=== PATIENT | female | born 1985 | race American Indian/Alaskan Native ===

== ENCOUNTER 2019-12-26 00:36 | Emergency (ER) | payer SELFPAY ==
[2019-12-26] MEDS ORDERED: IBUPROFEN 800 MG TAB PO ONE (02:42)
[2019-12-26] MEDS ORDERED: TETANUS,DIPH,PERTUSS(ACELL) VACCINE 0.5 ML SYRINGE IM ONE (02:42)
[2019-12-26] MEDS ORDERED: AMOXICILLIN/K CLAV 875/125MG TAB PO ONE (02:42)
--- NOTE | 2019-12-26 03:14 | Emergency Department Report ---
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 Patient states that he was delivering some packages in the neighborhood and a dog from one of the houses attacked her and ended up biting her on the thighs bilaterally. Patient states that the another dog stated the dog was fully vaccinated and is to avail documentary evidence of the vaccination in 2 days time. Patient states that she is not up-to-date with her tetanus vaccinations. Patient denies numbness and tingling or weakness of lower extremities bilaterally, dizziness, chest pain, shortness of breath, fever, chills, nausea and vomiting. MD Complaint: animal bite, animal-related injury, other (dog bite to bilateral thighs) -: Sudden, hour(s) (12) Location: other (bilateral thighs) Left: Thigh (puncture wounds from dog bites), Right: Thigh Animal: dog Animal Control Notified: Yes Description: household pet, immunizations UTD, appeared well Mechanism: bite, scratch, contact with mucous membr Pain Description: sharp, constant Severity scale (0 -10): 7 Context: provoked Associated Symptoms: none. denies: erythema, discharge from wound, bleeding, fever, chills, rash, loss of consciousness, diaphoresis, shortness of breath, other Treatments Prior to Arrival: wound dressing(s) - Related Data Patient Tetanus UTD: No (Given during this visit) Previous Rx's Medication Instructions Recorded Last Taken Type Promethazine [Phenergan] 25 mg PO Q6H PRN #14 tablet 08/07/13 Unknown Rx Cephalexin [Keflex] 500 mg PO QID #40 capsule 07/25/14 Unknown Rx Ibuprofen [Motrin] 600 mg PO Q8H PRN #50 tablet 07/25/14 Unknown Rx Cyclobenzaprine [Flexeril] 10 mg PO TID PRN #15 tablet 03/20/16 Unknown Rx Amoxicillin/Potassium Clav 1 each PO Q12H #20 tablet 12/26/19 Unknown Rx [Augmentin 875-125 Tablet] Ibuprofen [Motrin 800 MG tab] 800 mg PO Q8HR PRN #30 tablet 12/26/19 Unknown Rx Allergies Allergy/AdvReac Type Severity Reaction Status Date / Time No Known Allergies Allergy Unverified 08/07/13 13:30 ED Review of Systems ROS: Stated complaint: DOG BITE Other details as noted in HPI Constitutional: denies: chills, fever Eyes: denies: eye pain, eye discharge, vision change ENT: denies: ear pain, throat pain Respiratory: denies: cough, shortness of breath, wheezing Cardiovascular: denies: chest pain, palpitations Endocrine: no symptoms reported Gastrointestinal: denies: abdominal pain, nausea, vomiting, diarrhea Genitourinary: denies: urgency, dysuria, discharge Musculoskeletal: arthralgia (Painful bilateral thighs due to puncture wounds from dog bite). denies: back pain, joint swelling Skin: other (puncture wounds on bilateral thighs with pain). denies: rash, lesions Neurological: denies: headache, weakness, paresthesias Psychiatric: denies: anxiety, depression Hematological/Lymphatic: denies: easy bleeding, easy bruising ED Past Medical Hx - Past Medical History Previous Medical History?: Yes Hx Kidney Stones: Yes Additional medical history: fibroids/cysts - Surgical History Additional Surgical History: fibroids removed - Social History Smoking Status: Current Every Day Smoker Substance Use Type: None - Medications Home Medications: Home Medications Medication Instructions Recorded Confirmed Last Taken Type Promethazine [Phenergan] 25 mg PO Q6H PRN #14 tablet 08/07/13 Unknown Rx Cephalexin [Keflex] 500 mg PO QID #40 capsule 07/25/14 Unknown Rx Ibuprofen [Motrin] 600 mg PO Q8H PRN #50 tablet 07/25/14 Unknown Rx Cyclobenzaprine [Flexeril] 10 mg PO TID PRN #15 tablet 03/20/16 Unknown Rx Amoxicillin/Potassium Clav 1 each PO Q12H #20 tablet 12/26/19 Unknown Rx [Augmentin 875-125 Tablet] Ibuprofen [Motrin 800 MG tab] 800 mg PO Q8HR PRN #30 tablet 12/26/19 Unknown Rx ED Physical Exam - General Limitations: No Limitations General appearance: alert, in no apparent distress - Head Head exam: Present: atraumatic, normocephalic, normal inspection - Eye Eye exam: Present: normal appearance, PERRL, EOMI Pupils: Present: normal accommodation - ENT ENT exam: Present: normal exam, normal orophraynx, mucous membranes moist, TM's normal bilaterally, normal external ear exam - Neck Neck exam: Present: normal inspection, full ROM - Respiratory Respiratory exam: Present: normal lung sounds bilaterally. Absent: respiratory distress, wheezes, rales, rhonchi, chest wall tenderness, accessory muscle use, decreased breath sounds - Cardiovascular Cardiovascular Exam: Present: regular rate, normal rhythm, normal heart sounds. Absent: systolic murmur, diastolic murmur, rubs, gallop - GI/Abdominal GI/Abdominal exam: Present: soft, normal bowel sounds. Absent: tenderness, guarding, rebound, hyperactive bowel sounds, hypoactive bowel sounds, organomegaly - Extremities Exam Extremities exam: Present: normal inspection, full ROM, tenderness (Palpable bilateral thigh tenderness due to puncture wounds from dog bite), normal capillary refill - Back Exam Back exam: Present: normal inspection, full ROM. Absent: tenderness, CVA tenderness (R), muscle spasm, paraspinal tenderness - Neurological Exam Neurological exam: Present: alert, oriented X3, CN II-XII intact, normal gait, reflexes normal - Psychiatric Psychiatric exam: Present: normal affect, normal mood - Skin Skin exam: Present: warm, dry, intact, normal color, other (Severely tender puncture wounds on bilateral thighs due to dog bite wounds). Absent: rash ED Course Vital Signs 12/26/19 12/26/19 00:42 00:48 Temperature 98.6 F 98.5 F Pulse Rate 96 H 106 H Respiratory 18 20 Rate Blood Pressure 169/113 Blood Pressure 178/110 [Right] O2 Sat by Pulse 97 97 Oximetry Critical care attestation.: If time is entered above; I have spent that time in minutes in the direct care of this critically ill patient, excluding procedure time. ED Disposition Clinical Impression: Dog bite of thigh Qualifiers: Encounter type: initial encounter Laterality: unspecified laterality Qualified Code(s): S71.159A - Open bite, unspecified thigh, initial encounter; W54.0XXA - Bitten by dog, initial encounter Puncture wound of thigh Qualifiers: Encounter type: initial encounter Laterality: unspecified laterality Qualified Code(s): S71.139A - Puncture wound without foreign body, unspecified thigh, initial encounter Disposition: DC-01 TO HOME OR SELFCARE Is pt being admited?: No Does the pt Need Aspirin: No Condition: Stable Instructions: Animal Bite (ED), Puncture Wound (ED) Additional Instructions: Take medication with food, drink plenty of fluids and follow-up with your primary care physician in 7 to 10 days for reevaluation. Return to the ED immediately if symptoms get worse or if you discover that the dog that bit you is not fully vaccinated so you can begin you rabies vaccination series Prescriptions: Amoxicillin/Potassium Clav [Augmentin 875-125 Tablet] 1 each PO Q12H #20 tablet Ibuprofen [Motrin 800 MG tab] 800 mg PO Q8HR PRN #30 tablet PRN Reason: Pain Referrals: PRIMARY CARE,MD [Primary Care Provider] - 3-5 Days Forms: Work/School Release Form(ED) Time of Disposition: 03:16 Print Language: SINHALA
[2019-12-26 03:31] VITALS: BP 152/107
== END 2019-12-26 03:31 | disposition home or self-care (01) ==
LOC: ED 00:36
DX: S71.131A Puncture wound without foreign body, right thigh, initial encounter (principal); S71.132A Puncture wound without foreign body, left thigh, initial encounter; S71.151A Open bite, right thigh, initial encounter; S71.152A Open bite, left thigh, initial encounter; F17.200 Nicotine dependence, unspecified, uncomplicated; Z87.442 Personal history of urinary calculi; Z98.890 Other specified postprocedural states; Z79.899 Other long term (current) drug therapy; W54.0XXA Bitten by dog, initial encounter; Y93.89 Activity, other specified; Y92.89 Other specified places as the place of occurrence of the external cause; Y99.8 Other external cause status
CPT/HCPCS: 90471; 90715; 99282

== ENCOUNTER 2020-05-03 22:59 | Emergency (ER) | payer SELFPAY ==
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
== END 2020-05-04 02:45 | disposition home or self-care (01) ==
LOC: ED 22:59
DX: S16.1XXA Strain of muscle, fascia and tendon at neck level, initial encounter (principal); M62.830 Muscle spasm of back; V89.2XXA Person injured in unspecified motor-vehicle accident, traffic, initial encounter; Y93.89 Activity, other specified; Y92.89 Other specified places as the place of occurrence of the external cause; Y99.8 Other external cause status
CPT/HCPCS: 70450; 71046; 72125; 93005

== ENCOUNTER 2020-08-10 19:40 | Emergency (ER) | payer SELFPAY ==
[2020-08-10 20:05] VITALS: BP 164/102
--- NOTE | 2020-08-10 21:02 | Event Note ---
ED Screening Note ED Screening Note: Patient is a 45-year-old female presents emergency room complaints of right temporal headache that began 4 days ago. She states that her vision occasionally feels blurry, she has nausea, vomiting, lightheadedness. She has a history of migraines and takes Fioricet. She states that her headache feels worse. She states that she is currently on her menstrual cycle. She denies any diarrhea, fever, numbness, weakness. She states that she wants a CT scan of her head. She states that she has a family history of aneurysms and wants to be checked. This initial assessment/diagnostic orders/clinical plan/treatment(s) is/are subject to change based on patients health status, clinical progression and re-assessment by fellow clinical providers in the ED. Further treatment and workup at subsequent clinical providers discretion. Patient/guardian urged not to elope from the ED as their condition may be serious if not clinically assessed and managed. Initial orders include: ct head acc eval
== END 2020-08-10 21:17 | disposition left against medical advice (07) ==
LOC: ED 19:40
DX: R51.9 Headache, unspecified (principal); R11.2 Nausea with vomiting, unspecified; R42 Dizziness and giddiness; Z53.21 Procedure and treatment not carried out due to patient leaving prior to being seen by health care provider